=== PATIENT | female | born 1930 | race Caucasian/White ===

== ENCOUNTER → 2016-12-05 | Outpatient (CLI) | payer MEDICARE ==
[2016-01-12 10:23] VITALS: BP 132/72
[~2016-12-05] MED LIST: AMLO5TAB2 PO; ASPI81TA44 PO; CEPH-264 PO; LISI-338 PO; [UNRECOGNIZED DRUG - REMARK]; blood pressure pill
--- NOTE | 2016-12-05 09:23 | RAD ---
Indication chest congestion and cough. PA and lateral views of the chest were obtained and comparison is made to an examination 01/10/2016. Tortuous thoracic aorta is noted similar to the previous exam. The lungs are clear. There has not been a significant change in the appearance of the chest compared to the previous exam. IMPRESSION: No acute or focal process. No significant change
== END | disposition home or self-care (01) ==
LOC: DXRADRC 08:29
PROVIDERS: ATTEND Physician Assistant Medical
DX: R09.89 Other specified symptoms and signs involving the circulatory and respiratory systems (principal); R05 Cough
CPT/HCPCS: 71020

== ENCOUNTER 2017-03-07 13:39 | Emergency (ER) | payer MEDICARE ==
--- NOTE | 2017-03-07 14:14 | PHYS DOC ---
Past History Past Medical History: High Cholesterol, Hypertension Past Surgical History: Lumbar Laminectomy, Other Alcohol Use: None Drug Use: None Adult General Chief Complaint Chief Complaint: FOOT INJURY PAIN HPI HPI Patient is a 86 year old female who presents with complaint of right foot pain. Patient states that her symptoms started yesterday. Patient states that she is wearing a pair of sneakers which started rubbing on the medial aspect of her right heel. Patient states that she applied ice to the area during the night to try to help with her symptoms. Patient states that the heel became more red and swollen starting today. Patient denies any associated fever or nausea with her symptoms. Patient has had history of cellulitis requiring hospital admission in the past. The patient also is complaining of nonproductive cough. Patient has history of asthma. Patient states her symptoms have been worsening over the past 2 days. Patient has had associated shortness of breath but denies chest pain. The patient states that she has been using an old albuterol inhaler with mild relief in symptoms. Review of Systems Review of Systems Constitutional: Denies fever or chills [] Eyes: Denies change in visual acuity, redness, or eye pain [] HENT: Denies nasal congestion or sore throat [] Respiratory: Cough, shortness of breath [] Cardiovascular: Denies substernal chest pain or edema [] GI: Denies abdominal pain, nausea, vomiting, bloody stools or diarrhea [] : Denies dysuria or hematuria [] Musculoskeletal: Right heel pain and swelling [] Integument: Denies rash or skin lesions [] Neurologic: Denies headache, focal weakness or sensory changes [] Current Medications Current Medications Current Medications Medications (Trade) Dose Ordered Sig/David Start Time Stop Time Status Last Admin Dose Admin Albuterol/ Ipratropium (Duoneb) 3 ml 1X ONCE 03/07/17 14:30 03/07/17 14:31 DC 03/07/17 14:26 3 ML Allergies Allergies Allergies Coded Allergies Type Severity Reaction Last Updated Verified No Known Drug Allergies 01/10/16 No Physical Exam Physical Exam Constitutional: Alert, afebrile, no acute distress. [] HENT: Normocephalic, atraumatic, bilateral external ears normal, oropharynx moist, no oral exudates, nose normal. [] Eyes: PERRLA, EOMI, conjunctiva normal, no discharge. [] Neck: Normal range of motion, no tenderness, supple, no stridor. [] Cardiovascular:Heart rate regular rhythm, no murmur [] Lungs & Thorax: Moderately restricted air movement bilaterally, expiratory wheezing bilaterally, no rales [] Abdomen: Bowel sounds normal, soft, no tenderness, no masses, no pulsatile masses. [] Skin: Warm, dry, no erythema, no rash. [] Back: No tenderness, no CVA tenderness. [] Extremities: Mild soft tissue swelling along medial right heel with central ecchymotic lesion and surrounding erythema, warm to touch, mild tenderness to palpation present, no cyanosis, no clubbing, ROM intact, no edema. [] Neurologic: Alert and oriented X 3, normal motor function, normal sensory function, no focal deficits noted. [] Current Patient Data Vital Signs Vital Signs Date Time Temp Pulse Resp B/P (MAP) Pulse Ox O2 Delivery O2 Flow Rate FiO2 03/07/17 13:50 97.9 93 22 96 Room Air EKG EKG Not performed [] Radiology/Procedures Radiology/Procedures [address] [id number] IMAGING REPORT Signed PATIENT: NOHEMI ODELL ACCOUNT: [id number] : 1930 LOCATION: ER AGE: 86 SEX: F EXAM STATUS: REG ER ORD. PHYSICIAN: KALIN GATES MD REASON: cough, wheezing PROCEDURE: CHEST PA & LATERAL EXAM: CHEST 2 VIEWS History: Cough, wheezing for one week COMPARISON: 12/05/2016 TECHNIQUE: PA and lateral chest radiographs FINDINGS: The cardiomediastinal silhouette is within normal limits. The lungs are clear bilaterally. The costophrenic sulci are clear and well demarcated bilaterally. IMPRESSION: No radiographic evidence of an acute cardiopulmonary abnormality. DICTATED AND SIGNED BY: VAHE MADDEN MD DATE: 03/07/17 1449 CC: KALIN GATES MD; DAISY MUSA ~ [] Course & Med Decision Making Course & Med Decision Making Pertinent Labs and Imaging studies reviewed. (See chart for details) Patient was given DuoNeb breathing treatment in the emergency department with improvement in shortness of breath symptoms. The patient will be started on doxycycline for treatment of right foot cellulitis. Patient will also be started on prednisone for treatment of mild asthma exacerbation. Recommended follow-up in 2-3 days with patient's primary doctor for reevaluation. The patient did admit that she had a cold compress on longer than recommended. Potential frostbite is a consideration in this patient. Stressed the importance of following up in 2-3 days for reevaluation of the right foot. Advised return emergency department for any worsening symptoms. Patient was understanding and in agreement with treatment plan. Dragon Disclaimer Dragon Disclaimer This chart was dictated in whole or in part using Voice Recognition software in a busy, high-work load, and often noisy Emergency Department environment. It may contain unintended and wholly unrecognized errors or omissions. Departure Departure: Impression: Primary Impression: Cellulitis Additional Impression: Asthma exacerbation Disposition: 01 HOME, SELF-CARE Condition: IMPROVED Referrals: DAISY MUSA (PCP) Patient Instructions: Asthma, Adult, Cellulitis Additional Instructions: Follow-up with your primary doctor in 2-3 days. Return to the emergency department for any worsening symptoms. Scripts Prednisone (PREDNISONE) 10 Mg Tablet 10 MG PO UD for PREDNISONE TAPER, #39 TAB 0 Refills Take 3 tablets by mouth twice a day for 3 days, then take 2 tablets by mouth twice a day for 3 days, then take 1 tablet by mouth twice a day for 3 days, then take 1 tablet by mouth daily x 3 days, then stop. Prov: KALIN GATES MD 03/07/17 Doxycycline Hyclate (DOXYCYCLINE HYCLATE) 100 Mg Capsule 1 CAP PO BID, #20 CAP Prov: KALIN GATES MD 03/07/17 Problem Qualifiers Primary Impression: Cellulitis Site of cellulitis: extremity Site of cellulitis of extremity: lower extremity Laterality: right Qualified Codes: L03.115 - Cellulitis of right lower limb KALIN GATES MD Mar 07, 2017 14:14
[2017-03-07] MEDS ORDERED: IPRATRPIUM/ALBUTEROL 0.5/2.5MG 3 ML NEBU. NEB ONE (14:30)
--- NOTE | 2017-03-07 14:52 | RAD ---
EXAM: CHEST 2 VIEWS History: Cough, wheezing for one week COMPARISON: 12/05/2016 TECHNIQUE: PA and lateral chest radiographs FINDINGS: The cardiomediastinal silhouette is within normal limits. The lungs are clear bilaterally. The costophrenic sulci are clear and well demarcated bilaterally. IMPRESSION: No radiographic evidence of an acute cardiopulmonary abnormality.
[2017-03-07] MEDS ORDERED: DOXY100C2 PO (15:04)
[2017-03-07] MEDS ORDERED: PRED-220 PO (15:04)
[2017-03-07] MEDS ORDERED: ALBU8.5H8 INH (15:11)
[2017-03-07 15:19] VITALS: BP 139/110
== END 2017-03-07 15:20 | disposition home or self-care (01) ==
LOC: ER 13:39
DX: L03.115 Cellulitis of right lower limb (principal); J45.901 Unspecified asthma with (acute) exacerbation; E78.00 Pure hypercholesterolemia, unspecified; I10 Essential (primary) hypertension
CPT/HCPCS: 71020; 94640; 99284; J7620

== ENCOUNTER → 2017-04-21 | Outpatient (CLI) | payer MEDICARE ==
[~2017-04-21] MED LIST changes: +ALBU8.5H8 INH; +DOXY100C2 PO; +PRED-220 PO
--- NOTE | 2017-04-21 11:58 | RAD ---
DATE: 04/21/2017 EXAM: MAMMO SIMA SCREENING BILATERAL HISTORY: Routine screening COMPARISON: 03/30/2016 This study was interpreted with the benefit of Computerized Aided Detection (CAD). The breast parenchyma is primarily fatty replaced. Breast parenchyma level density A. FINDINGS: 2-D and 3-D tomosynthesis imaging was performed in CC and MLO projections. No new or enlarging breast densities are seen. Minimal benign type calcification is present. No suspicious microcalcifications have developed. IMPRESSION: Stable mammograms without evidence of malignancy. BI-RADS CATEGORY: 2 BENIGN FINDING(S) RECOMMENDED FOLLOW-UP: 12M 12 MONTH FOLLOW-UP PQRS compliance statement: Patient information was entered into a reminder system with a target due date for the next mammogram. Mammography is a sensitive method for finding small breast cancers, but it does not detect them all and is not a substitute for careful clinical examination. A negative mammogram does not negate a clinically suspicious finding and should not result in delay in biopsying a clinically suspicious abnormality. "Our facility is accredited by the [employer] Mammography Program."
== END | disposition home or self-care (01) ==
LOC: MAMMO 08:43
PROVIDERS: ATTEND Physician Assistant Medical
DX: Z12.31 Encounter for screening mammogram for malignant neoplasm of breast (principal)
CPT/HCPCS: 77063; G0202; 77067

== ENCOUNTER → 2017-11-22 | Outpatient (CLI) | payer MEDICARE ==
--- NOTE | 2017-11-22 08:52 | RAD ---
Chest radiograph 11/22/2017 2:00 AM Indication: Cough, wheezing Comparison: Chest radiograph 03/07/2017 Technique: PA and lateral views of the chest are provided. Findings: Cardiomediastinal silhouette is within normal limits. Thoracic aorta is tortuous. No pleural effusions, pulmonary vascular congestion or pneumothorax. The lungs are clear. There is reverse S-shaped curvature of the thoracic lumbar spine. Impression: No acute cardiopulmonary process.
== END | disposition home or self-care (01) ==
LOC: PMG 08:31
PROVIDERS: ATTEND Physician Assistant Medical
DX: R05 Cough (principal); I10 Essential (primary) hypertension; E78.5 Hyperlipidemia, unspecified
CPT/HCPCS: 71046

== ENCOUNTER 2018-02-12 22:35 | Inpatient (IN) | payer MEDICARE ==
[~2018-02-12] VITALS: Ht 162.6 cm; Wt 84.5 kg
[~2018-02-12 22:35] MED LIST changes: -ASPI81TA44 PO; +ASPI81TA59 PO
--- NOTE | 2018-02-12 22:51 | ED.ADGEN ---
Past History Past Medical History: High Cholesterol, Hypertension Past Surgical History: Lumbar Laminectomy, Other Alcohol Use: None Drug Use: None Adult General Chief Complaint Chief Complaint " I was watching a movie at 1000 pm .. and dropped peanut lid.. and could not pick it up... with my right hand.. it was all numb.. it just would not work... but it is better now..." HPI HPI Patient is a 87 year old female who presents with above hx and complaints of Rt. hand weakness and numbness. Pt. unable to use her had for 30 minutes, but just before arrival function return to right hand. Pt. states she was also feeling " jeremiah druged". Pt denies prior hx of CVA, TIA. Pt. has hx of HTN and elevated Cholesterol. Pt. follows with [facility]. Pt. denies any fever, chills, travel or ill contacts. Pt. compliant with meds. Pt. Rt. hand dominate. 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 GCS 15. Review of Systems Review of Systems Constitutional: Denies fever or chills [] Eyes: Denies change in visual acuity, redness, or eye pain [] HENT: Denies nasal congestion or sore throat [] Respiratory: Denies cough or shortness of breath [] Cardiovascular: No additional information not addressed in HPI [] GI: Denies abdominal pain, nausea, vomiting, bloody stools or diarrhea [] : Denies dysuria or hematuria [] Musculoskeletal: Denies back pain or joint pain [] Integument: Denies rash or skin lesions [] Neurologic: Denies headache, Hxl of Rt, hand focal weakness /sensory changes [] Endocrine: Denies polyuria or polydipsia [] All other systems were reviewed and found to be within normal limits, except as documented in this note. Family History Family History Non-contributory Current Medications Current Medications Current Medications Medications (Trade) Dose Ordered Sig/David Start Time Stop Time Status Last Admin Dose Admin Aspirin (Duane Aspirin) 325 mg 1X ONCE 02/12/18 23:30 02/12/18 23:31 DC See Nursing for home, meds. Allergies Allergies Allergies Coded Allergies Type Severity Reaction Last Updated Verified No Known Drug Allergies 01/10/16 No Physical Exam Physical Exam Constitutional: , no acute distress, non-toxic appearance. [] HENT: Normocephalic, atraumatic, bilateral external ears normal, oropharynx moist, no oral exudates, nose normal. [] Eyes: PERRLA, EOMI, conjunctiva normal, no discharge. [] Neck: Normal range of motion, no tenderness, supple, no stridor. [] Cardiovascular:Heart rate regular rhythm, no murmur [] Lungs & Thorax: Bilateral breath sounds equal at apex on auscultation [] Abdomen: Bowel sounds normal, soft, no tenderness, no masses, no pulsatile masses. [] Scar. Skin: Warm, dry, no erythema, no rash. Poor turgor. Back: No tenderness, no CVA tenderness. [] Old lumbar surgery scar. Extremities: No tenderness, no cyanosis, no clubbing, ROM intact, no edema. [] Arthritic changes.. Neurologic: Alert and oriented X 3,no gross motor and sensory function deficits , no focal deficits noted. []DTR+ 2 brachial and patella. No drift. Pt. ambulatory without problems. Psychologic: Affect normal, judgement normal, mood normal. [] Current Patient Data Vital Signs Vital Signs Date Time Temp Pulse Resp B/P (MAP) Pulse Ox O2 Delivery O2 Flow Rate FiO2 02/12/18 22:41 97.6 83 20 96 Room Air Lab Results Laboratory Tests Test 02/12/18 23:09 02/13/18 00:15 White Blood Count 6.8 x10^3/uL (4.0-11.0) Red Blood Count 4.48 x10^6/uL (3.50-5.40) Hemoglobin 13.9 g/dL (12.0-15.5) Hematocrit 41.7 % (36.0-47.0) Mean Corpuscular Volume 93 fL (79-100) Mean Corpuscular Hemoglobin 31 pg (25-35) Mean Corpuscular Hemoglobin Concent 33 g/dL (31-37) Red Cell Distribution Width 13.6 % (11.5-14.5) Platelet Count 208 x10^3/uL (140-400) Neutrophils (%) (Auto) 43 % (31-73) Lymphocytes (%) (Auto) 41 % (24-48) Monocytes (%) (Auto) 13 % (0-9) H Eosinophils (%) (Auto) 3 % (0-3) Basophils (%) (Auto) 1 % (0-3) Neutrophils # (Auto) 2.9 x10^3uL (1.8-7.7) Lymphocytes # (Auto) 2.8 x10^3/uL (1.0-4.8) Monocytes # (Auto) 0.9 x10^3/uL (0.0-1.1) Eosinophils # (Auto) 0.2 x10^3/uL (0.0-0.7) Basophils # (Auto) 0.1 x10^3/uL (0.0-0.2) Erythrocyte Sedimentation Rate 6 (0-25) Prothrombin Time 11.0 SEC (9.4-11.4) Prothrombin Time INR 1.1 (0.9-1.1) PTT 27 SEC (23-33) Sodium Level 143 mmol/L (136-145) Potassium Level 3.9 mmol/L (3.5-5.1) Chloride Level 107 mmol/L (98-107) Carbon Dioxide Level 26 mmol/L (21-32) Anion Gap 10 (6-14) Blood Urea Nitrogen 24 mg/dL (7-20) H Creatinine 1.1 mg/dL (0.6-1.0) H Estimated GFR (Cockcroft-Gault) 47.2 Glucose Level 98 mg/dL (70-99) Calcium Level 9.2 mg/dL (8.5-10.1) Magnesium Level 2.3 mg/dL (1.8-2.4) Ammonia < 10 mcmol/L (11-34) L Creatine Kinase 143 U/L (26-192) Creatine Kinase MB (Mass) 1.8 ng/mL (0.0-3.6) Creatine Kinase MB Relative Index 1.3 % (0-4) Troponin I Quantitative < 0.017 ng/mL (0-0.055) PH-Roc-G-Type Natriuretic Peptide 229 pg/mL (0-449) Urine Collection Type Unknown Urine Color Yellow Urine Clarity Clear Urine pH 7.0 Urine Specific [place] 1.015 Urine Protein Neg (NEG-TRACE) Urine Glucose (UA) Neg mg/dL (NEG) Urine Ketones (Stick) Neg mg/dL (NEG) Urine Blood Mod (NEG) Urine Nitrite Neg (NEG) Urine Bilirubin Neg (NEG) Urine Urobilinogen Dipstick 0.2 mg/dL (0.2 mg/dL) Urine Leukocyte Esterase Neg (NEG) Urine RBC 1-2 /HPF (0-2) Urine WBC 0 /HPF (0-4) Urine Squamous Epithelial Cells Occ /LPF Urine Bacteria 0 /HPF (0-FEW) Urine Opiates Screen Neg (NEG) Urine Methadone Screen Neg (NEG) Urine Barbiturates Neg (NEG) Urine Phencyclidine Screen Neg (NEG) Urine Amphetamine/Methamphetamine Neg (NEG) Urine Benzodiazepines Screen Neg (NEG) Urine Cocaine Screen Neg (NEG) Urine Cannabinoids Screen Neg (NEG) Urine Ethyl Alcohol Neg (NEG) EKG EKG My interpretation of EKG show a sinus 80, occ. PAC, Lt axis, no findings of acute STEMI with contralateral changes. [] Radiology/Procedures Radiology/Procedures My interpretation of CXR shows No acute cardiopul. changes. DJD, Borderline cardiac. My interpretation of CT head shows no shift, mass, edema, bleed, or fracture. Does have findings of white matter disease changes. Formal report when available [] Course & Med Decision Making Course & Med Decision Making Pertinent Labs and Imaging studies reviewed. (See chart for details). Discussed presentation, testing and treatment plan with - will admit for further eval and tx. [] Final Impression Final Impression 1. TIA vs CVA[] 2. HTN 3. Elevated BUN /Creat. Dragon Disclaimer Dragon Disclaimer This electronic medical record was generated, in whole or in part, using a voice recognition dictation system. FATIMAH TOLEDO MD February 12, 2018 22:51
--- NOTE | 2018-02-12 23:17 | EKG ---
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
--- NOTE | 2018-02-12 23:28 | RAD ---
RS Compliance Statement: One or more of the following individualized dose reduction techniques were utilized for this examination: 1. Automated exposure control 2. Adjustment of the mA and/or kV according to patient size 3. Use of iterative reconstruction technique CT HEAD WITHOUT CONTRAST History: [id number] Headache, dizziness tonight Comparison: None. Technique: Axial images are obtained of the head from the skull base through the vertex without IV contrast. Findings: No mass-effect, midline shift, extra-axial fluid collection, hemorrhage, or obvious acute infarction is identified. Basilar cisterns are patent. The ventricles and sulci are prominent, consistent with age-related cerebral atrophy. There is periventricular white matter hypoattenuation. This is a nonspecific finding but is commonly due to chronic small vessel ischemic disease. Bone windows demonstrate no acute calvarial abnormality. The visualized paranasal sinuses are clear. Mastoid air cells are well aerated. IMPRESSION: 1. No acute intracranial abnormality. 2. Age-related cerebral atrophy and periventricular white matter changes of chronic small vessel ischemic disease. Electronically signed by: Juan Antonio Buitrago MD (02/12/2018 11:25 PM) [facility]
[2018-02-12 23:30] LABS: BASO # 0.1 x10^3/uL (0.0-0.2); BASO % 1 % (0-3); EOS # 0.2 x10^3/uL (0.0-0.7); EOS % 3 % (0-3); HEMATOCRIT 41.7 % (36.0-47.0); HEMOGLOBIN 13.9 g/dL (12.0-15.5); LYMPH # 2.8 x10^3/uL (1.0-4.8); LYMPH % 41 % (24-48); MEAN CORPUSCULAR HEMOGLOBIN 31 pg (25-35); MEAN CORPUSCULAR HGB CONC 33 g/dL (31-37); MEAN CORPUSCULAR VOLUME 93 fL (79-100); MONO # 0.9 x10^3/uL (0.0-1.1); MONO % 13 % (0-9); NEUT # 2.9 x10^3uL (1.8-7.7); NEUT % 43 % (31-73); PLATELET COUNT 208 x10^3/uL (140-400); RED BLOOD COUNT 4.48 x10^6/uL (3.50-5.40); RED CELL DISTRIBUTION WIDTH 13.6 % (11.5-14.5); WHITE BLOOD COUNT 6.8 x10^3/uL (4.0-11.0)
[2018-02-12] MEDS ORDERED: ASPIRIN 325 MG TABLET PO ONE (23:30)
[2018-02-12 23:52] LABS: CALCIUM 9.2 mg/dL (8.5-10.1); CREATININE 1.1 mg/dL (0.6-1.0); GFR 47.2; MAGNESIUM 2.3 mg/dL (1.8-2.4); POTASSIUM 3.9 mmol/L (3.5-5.1)
[2018-02-13 01:08] LABS: BACTERIA,URINE 0 /HPF (0-FEW); BARBITURATES NEG (NEG); BENZODIAZEPINES NEG (NEG); BILIRUBIN,URINE NEG (NEG); CANNABINOIDS NEG (NEG); CLARITY,URINE CLEAR; COCAINE NEG (NEG); COLOR,URINE YELLOW; GLUCOSE,URINE NEG (NEG); METHADONE NEG (NEG); NITRITE,URINE NEG (NEG); OPIATES NEG (NEG); PHENCYCLIDINE NEG (NEG); SQUAMOUS EPITHELIAL CELL,UR OCC /LPF; UROBILINOGEN,URINE 0.2 mg/dL (0.2 mg/dL); WBC,URINE 0 /HPF (0-4)
[2018-02-13 01:09] LABS: AMPHETAMINE/METHAMPHETAMINE NEG (NEG)
[2018-02-13 03:30] VITALS: BP 148/81
[2018-02-13] MEDS ORDERED: cloNIDine HCL 0.1 MG TABLET PO ONE (03:30)
[2018-02-13] MEDS ORDERED: LISI-338 PO (05:30)
[2018-02-13] MEDS ORDERED: PITA2TAB2 PO (05:30)
[2018-02-13 05:40] VITALS: BP 125/78
[2018-02-13] MEDS ORDERED: ALBU8.5H8 INH (07:54)
[2018-02-13] MEDS: ASPIRIN 81 MG TAB.CHEW PO SCH (09:12)
--- NOTE | 2018-02-13 09:18 | RAD ---
Portable chest, 02/12/2018: HISTORY: Dizziness, headache Comparison is made to a study from 11/22/2017. The heart size is within normal limits. There is moderate ectasia of the thoracic aorta. The pulmonary vascularity is within normal limits. No pulmonary consolidation is seen. There is no evidence of pleural fluid. IMPRESSION: 1. Aortic ectasia. 2. No acute cardiopulmonary abnormality is detected. Electronically signed by: Bin Sharp MD (02/13/2018 9:14 AM) [facility]
[2018-02-13] MEDS ORDERED: IOHEXOL 300 MG/ML 75 ML VIAL. IV ONE (09:30)
--- NOTE | 2018-02-13 10:59 | RAD ---
CTA head and neck History: Right arm numbness starting 24 hours ago, TIA Technique: After bolus of intravenous contrast, volumetric CT data acquisition was acquired of the head and neck. Multiplanar reconstruction images to include MIP and 3-D reconstruction images are submitted. Exposure: One or more of the following individualized dose reduction techniques were utilized for this examination: 1. Automated exposure control 2. Adjustment of the mA and/or kV according to patient size 3. Use of iterative reconstruction technique. Contrast: 60 cc Omnipaque 300 Comparison: Noncontrast head CT the same day, no previous similar exam available Any determination of stenosis is based on NASCET criteria. CTA head: Findings: Right vertebral artery constitute the basilar artery. Left vertebral artery terminates in PICA. There is visualization of PICAs, superior cerebellar arteries, questionably visualized AICAs. There is fairly prominent right posterior communicating artery, probably aplastic right P1 segment. No significant left posterior communicating artery is visualized. There is visualization of bilateral internal carotid arteries at the skull base. There is some atherosclerotic calcification carotid siphons bilaterally, no significant stenosis. Anterior communicating artery is not confidently identified. There is visualization segments of the anterior, middle, posterior cerebral arteries bilaterally, no focal vessel occlusion or defined filling defect identified. No aneurysm is identified. There is visualization segments of the major venous sinuses. Impression: 1. No focal vessel occlusion or defined intraluminal filling defect is identified of the intracranial vasculature. Right vertebral artery supplies the basilar artery. Left vertebral artery terminates in PICA. There is likely right posterior cerebral artery. Neck CTA: Findings: There is suboptimal contrast opacification of the aortic arch and the proximal great vessels for this exam. There is calcified plaque of the proximal left internal carotid artery without significant stenosis. Proximal right common carotid artery is tortuous, narrowing at the site of maximal tortuosity although overall patent without significant stenosis. Right cervical internal carotid artery is patent without significant stenosis. No convincing dissection flap is identified of the cervical arterial vasculature allowing for limitations of visualization of the proximal great vessels. Left vertebral artery is diffusely hypoplastic comparing with the right. Proximal right vertebral artery is tortuous. Proximal left vertebral artery is poorly visualized, very small in caliber. There is no significant abnormality of the limited visualized lung apices. There is multilevel cervical degenerative disc disease and spondylosis. There is multilevel spinal stenosis greatest at C6-7, central canal stenosis with level about 6 to 7 mm to lesser degree at C5-C6 and C4-5. There is multilevel facet and uncovertebral degenerative change contributing to multilevel cervical neural foramina compromise, more significant narrowing on the left at C3-4 and C4-5 and on the right at C5-C6 and C6-7. Impression: 1. Proximal great vessels and aortic arch are poorly evaluated on this exam due to degree of contrast opacification. Otherwise no significant stenosis or dissection flap is identified of the cervical arterial vasculature. Left vertebral artery is diffusely hypoplastic, proximally poorly visualized. 2. There is multilevel cervical degenerative disc disease and spondylosis, also multilevel spinal stenosis. There is multilevel facet and uncovertebral degenerative change contributing to neural foramina compromise. Electronically signed by: Jossue Cohn MD (02/13/2018 10:56 AM) [id number]
[2018-02-13 11:25] VITALS: BP 138/80
--- NOTE | 2018-02-13 15:22 | RAD ---
Carotid ultrasound, 02/13/2018: HISTORY: Right arm weakness/numbness, TIA Duplex evaluation of the carotid arteries and neck was performed including grayscale, color-flow and spectral Doppler analysis. There is mild intimal thickening and smooth plaquing at the carotid bifurcations, more so on the left. The peak systolic velocity in the right internal carotid artery is 69 cm/s with an end-diastolic velocity of 24 cm/s. On the left, the peak systolic velocity in the internal carotid artery is 78 cm/s with an end-diastolic velocity of 32 cm/s. These Doppler findings suggest narrowing in the 0-50 percent diameter range. Antegrade flow is present in both vertebral arteries in the neck. IMPRESSION: Mild atherosclerotic plaquing at both carotid bifurcations with underlying luminal narrowing in the 0-50 percent diameter range bilaterally. Note: Stenosis calculations for CT, MRA and conventional angiography are based upon determination of the distal ICA diameter in accordance with the NASCET methodology. Stenosis calculations for Doppler studies are derived from validated velocity criteria which are known to correlate with NASCET methodology of determining stenosis. Electronically signed by: Bin Sharp MD (02/13/2018 3:19 PM) [facility]
[2018-02-13 16:25] VITALS: BP 129/79
[2018-02-13] MEDS ORDERED: MAGN400C PO (17:46)
[2018-02-13] MEDS ORDERED: CALCIUM PO (17:46)
[2018-02-13] MEDS ORDERED: VIT1CAPS12 PO (17:46)
[2018-02-13 19:19] VITALS: BP 126/77
--- NOTE | 2018-02-13 20:31 | HP ---
ADMIT DATE: 02/13/2018 HISTORY OF PRESENT ILLNESS: The patient is an 87-year-old female patient, who came to the Emergency Room stating that she was watching movie at around 10 p.m. and dropped and could not pick it up with her right hand. It was all numb, just would not work; however, by the time she arrived to the Emergency Room, all her symptoms have completely resolved. She has no more weakness or numbness. She apparently was unable to use her hand for almost 30 minutes, but before arrival, function returned to her right hand. She also stated that she is feeling kind of drugged; however, she denied any history of CVA or TIA before. She is known to have hypertension, hypercholesterolemia, and has been following with her primary care physician. She stated that she has been compliant with all her medication. She was investigated. She was seen in the Emergency Room and has had lab work as well as CT scan of the head and chest and now was admitted for further evaluation and to consult Dr. Abarca and check her fasting lipid profile. PAST MEDICAL HISTORY: Significant for asthmatic bronchitis, hypertension, hyperlipidemia, osteoarthritis, and senile macular degeneration. PAST SURGICAL HISTORY: Significant for bilateral breast reduction surgery, back surgery in 2016, bilateral cataract extraction. ALLERGIES: She has no known drug allergies. MEDICATIONS: She is currently on following medications: Albuterol sulfate 2 puffs every 6 hours, Livalo 2 mg tablet once a day, amlodipine besylate 5 mg daily, lisinopril 5 mg daily. FAMILY HISTORY: She has one brother at age of 9 because of pneumonia and another brother in his 80s, three sisters and one still alive at the age of 95, and lives in [place]. Her father at age of 47, because some form of bleeding. Mother in her 60s because of severe asthma exacerbation. SOCIAL HISTORY: She is , has 3 daughters and 2 sons. One son because of cancer. She has never smoked, the last time she drank alcohol was more than 30 years ago. REVIEW OF SYSTEMS: The patient denied any blurring of vision, cataract, glaucoma, she does have macular degeneration. Denied any earache, tinnitus or sensorineural deafness. Denied any nosebleeds, stuffy nose or postnasal drip. Denied any sore throat, sore tongue, toothache, hoarseness of voice or difficulty swallowing. Denied any nausea, vomiting, diarrhea or constipation. Denied any hematemesis, melena or hematochezia. Denied any dysuria, frequency or hematuria. Denied any chest pain, shortness of breath, orthopnea, paroxysmal nocturnal dyspnea. Denied any cough, phlegm, or hemoptysis. PHYSICAL EXAMINATION: GENERAL: On arrival to the Emergency Room, she looked well and was clearly in no apparent respiratory distress. No pallor, jaundice, cyanosis, or thyromegaly. No jugular venous distension. No limb edema. VITAL SIGNS: Her heart rate was 83. Her blood pressure 162/93, temperature was 97.6, respiratory rate 20, and oxygen saturation was 96%. HEAD, EYES, EAR, NOSE AND THROAT: Showed normocephalic, atraumatic. NECK: Supple. HEART: Showed normal first and second sounds. No gallop, rub or murmur. CHEST: Clear to auscultation. No crepitation or rhonchi. ABDOMEN: Distended, soft, and nontender. NEUROLOGIC: She was awake, alert, responding appropriately. Her cranial nerves intact. All her weakness in her right upper extremity has completely subsided and the functionality retained. She has no more numbness. She was able to use her hand without any problem. She is able to ambulate without assistance or assistive devices. LABORATORY DATA: Showed a white cell count of 6800, hemoglobin 13.9, hematocrit 42, MCV 93, and platelet count 208,000. Her chemistry showed a serum sodium 143, potassium 3.9, chloride 107, bicarbonate 26, anion gap of 10, BUN 24, creatinine 1.1, estimated GFR was 47 mL per minute. Her glucose was 98, calcium was 9.2, magnesium 2.3. Her ammonia was only less than 10. Her serum triglycerides were 81. Her prothrombin time and INR are normal. PTT was 27. Urinalysis is unremarkable and toxic screen was negative. Her CT scan of the head showed no acute intracranial abnormality. She has age-related cerebral atrophy and periventricular white matter changes of chronic small vessel ischemic disease. We will obviously check her fasting lipid profile, consult Dr. Abarca and decide on further management accordingly. LENI PASCUAL MD DR: SHY/dennis JOB#: [id number] / [id number]
[2018-02-13 23:42] VITALS: BP 110/68
--- NOTE | 2018-02-14 00:51 | CONS ---
DATE OF CONSULTATION: 02/13/2018 NEUROLOGIC CONSULTATION REFERRING PHYSICIAN: Gala Srivastava MD REASON FOR CONSULTATION: TIA versus stroke. HISTORY OF PRESENT ILLNESS: This is an 87-year-old right-handed female who was admitted through Emergency Room on account of a sudden onset of right hand weakness. According to the patient, she was watching TV last night with her kids. She tried to put a cap on a jar. She was having difficulty and discoordinated of the right hand. She was rushed to the Emergency Room at [facility] and within 20 minutes her symptoms of right-handed weakness was roughly resolved. She denies headaches, visual disturbances, nausea, vomiting, slurred speech, chest pain, shortness of breath or palpitation, dysarthria or dysphagia. On arrival to the Emergency Room, she was given aspirin 325 mg. Initial nonenhanced head CT scan revealed no acute intracranial process, but age-related cerebral atrophy and chronic small vessel ischemic changes. Currently, the patient denies any new neurological or medical complaints. PAST MEDICAL HISTORY: Significant for chronic lower back pain, radiculopathy, spinal stenosis, hypertension, asthma, and hyperlipidemia, PAST SURGICAL HISTORY: Significant for L4-L5 laminectomy and removal of a sphenoidal cyst in 10/2015, varicose vein stripping to both the lower extremities, bilateral breast reduction. SOCIAL HISTORY: The patient lives independently. She denies smoking, alcohol drinking, or illicit drug use. CURRENT HOME MEDICATIONS: Albuterol inhaler, amlodipine 5 mg daily, lisinopril 5 mg daily, pitavastatin 2 mg daily. ALLERGIES: No known drug allergies. REVIEW OF SYSTEMS: A 10-point review of system was performed as mentioned above in history of present illness, otherwise unremarkable. PHYSICAL EXAMINATION: GENERAL: Well-developed, well-nourished female, not in acute distress. She weighs 190 pounds. VITAL SIGNS: Blood pressure 125/78, respiratory rate 18, pulse is 73, temperature 97.6, oxygen saturation 97% on room air. HEENT: Normocephalic, atraumatic, otherwise unremarkable. NECK: Supple. Negative for carotid bruit, lymphadenopathy, or thyromegaly. LUNGS: Clear to A and P. CARDIOVASCULAR: Regular rate and rhythm. Normal S1, S2. There is no S3, S4, or murmur. ABDOMEN: Soft. Bowel sounds positive. EXTREMITIES: Negative for cyanosis, clubbing, or pitting edema. NEUROLOGICAL: Mental Status: The patient is alert and oriented x 3. Speech is fluent. There is no language dysfunction. Memory, judgment, and abstract thinking are normal. The patient denies hallucination or delusion. Cranial nerves: Visual elizabeth are full. The pupils are reactive to light and accommodation. The extraocular movements are intact. There is no nystagmus. There is no facial motor or sensory deficit. Hearing is intact bilaterally. The palate is elevated symmetrically. Sternocleidomastoid muscles are powerful bilaterally. The patient shrugs her shoulders symmetrically, protrudes her tongue in the midline without fasciculation or atrophy. Motor examination revealed no focal muscle bulk was seen. The tone is normal. The strength is 5/5 throughout. Sensory examination revealed normal pinprick, light touch, vibratory and position senses. Deep tendon reflexes were symmetric and hypoactive with absent Achilles responses. Gait and coordination are normal. LABORATORY DATA: CBC revealed white blood cells of 6800, hemoglobin 13.9, hematocrit 41.7, platelet count . Chemistry revealed sodium of 143, potassium 3.9, chloride 107, CO2 26, BUN 24, creatinine 1.1, glucose is 98, calcium 9.2. Troponin level is normal. Cardiac enzymes are normal. Urinalysis is negative for urinary tract infections. Urine drug screen is negative. IMPRESSION: 1. Possible transient ischemic attack. 2. Hypertension and hyperlipidemia. 3. Chronic lower back pain, required laminectomy. RECOMMENDATIONS: 1. CT angio of the neck and head. 2. Continue with aspirin. 3. Continue with current management initiated by Dr. Srivastava. M Tanya VILCHIS MD DR: HERNANDEZ/dennis JOB#: [id number] / [id number]
[2018-02-14 05:58] VITALS: BP 139/87
[2018-02-14 06:33] LABS: CALCIUM 8.4 mg/dL (8.5-10.1); GFR 52.7; POTASSIUM 3.8 mmol/L (3.5-5.1)
[2018-02-14 06:43] LABS: BASO % 1 % (0-3); EOS # 0.2 x10^3/uL (0.0-0.7); EOS % 4 % (0-3); HEMATOCRIT 41.7 % (36.0-47.0); LYMPH # 2.2 x10^3/uL (1.0-4.8); LYMPH % 37 % (24-48); MEAN CORPUSCULAR HEMOGLOBIN 31 pg (25-35); MEAN CORPUSCULAR HGB CONC 34 g/dL (31-37); MEAN CORPUSCULAR VOLUME 93 fL (79-100); MONO # 0.6 x10^3/uL (0.0-1.1); MONO % 11 % (0-9); NEUT # 2.8 x10^3uL (1.8-7.7); NEUT % 48 % (31-73); PLATELET COUNT 204 x10^3/uL (140-400); RED BLOOD COUNT 4.47 x10^6/uL (3.50-5.40); RED CELL DISTRIBUTION WIDTH 13.6 % (11.5-14.5); WHITE BLOOD COUNT 5.9 x10^3/uL (4.0-11.0)
[2018-02-14] MEDS: ASPIRIN 81 MG TAB.CHEW PO SCH (08:21)
--- NOTE | 2018-02-14 22:04 | DS ---
DATE OF DISCHARGE: 02/14/2018 HISTORY OF PRESENT ILLNESS: The patient is an 87-year-old right-handed female patient, who was admitted to the Emergency Room on account of a sudden onset of right hand weakness. According to the patient, she was watching TV the night before with her kids. She tried to put the cup in the jar and she was having difficulty and discoordination in her right hand. She was rushed to the Emergency Room at [facility] and within 30 minutes, her symptoms of right-handed weakness has roughly resolved. She denied any headache, visual disturbances, nausea, vomiting, slurred speech, chest pain, shortness of breath, palpitation, dysarthria or dysphagia. On arrival to the Emergency Room, she was given aspirin 325 mg and initial nonenhanced CT scan revealed no acute intracranial process, but age-related cerebral atrophy and chronic small vessel ischemic disease. She was admitted and we did consult Dr. Abarca who recommended doing head and neck CT angio as well as bilateral carotid Doppler ultrasound. The carotid Doppler ultrasound showed there is mild intimal thickening and smooth plaquing at the carotid bifurcation, more so on the left. The peak systolic velocity in the right internal carotid artery was 69 cm/second with an end-diastolic velocity of 24 cm, the second in the left side. The peak systolic velocity in the internal carotid artery was 78 cm/sec with an end-diastolic velocity of 32 cm/sec. These Doppler findings shows narrowing in the 0-50% diameter range. Antegrade flow is present in both vertebral arteries in the neck and the impression is that the patient has mild atherosclerotic plaquing at both carotid bifurcation with underlying luminal narrowing in the 0-50% diameter range bilaterally. The CT angio of the head showed no focal vessel occlusion or defined intraluminal filling defect is identified with intracranial vasculature. The right vertebral artery supplies the basilar artery. The left vertebral artery terminates in the posterior inferior cerebellar artery. This is likely right posterior cerebral artery. There is no significant abnormality of the limited visualized lung apices. There is multilevel cervical degenerative disk disease and spondylosis. There is multilevel spinal stenosis greater at C6-C7, central canal stenosis with level about 6-7 cm to a lesser degree at C5-C6, C4-C5. There is multilevel facet and uncovertebral degenerative changes contributing to multilevel cervical neural foramina compromise more significant narrowing on the left at C3-C4, C4-C5 and on the right at C5-C6 and C6-C7. The patient remained well. She has had no further episode of right-sided weakness or any other neurological deficit. She has been up and about and then remained hemodynamically stable. She was evaluated by the physical therapy and has been up and about without any assistance or assistive devices and the decision was made to discharge her home to follow with her primary care physician. PHYSICAL EXAMINATION: GENERAL: On examining her today before discharge, she looked well and was clearly in no apparent respiratory distress, pale, but no jaundice or cyanosis. No lymphadenopathy, no thyromegaly. No jugular venous distension. No limb edema. VITAL SIGNS: Her heart rate was 67, blood pressure was 139/87, temperature was 98.1, respiratory rate was 14 and oxygen saturation was 96%. HEAD, EYES, EARS, NOSE AND THROAT: Showed normocephalic, atraumatic. NECK: Supple. HEART: Showed normal first and second heart sounds with no gallop, rub or murmur. CHEST: Clear to auscultation. No crepitation or rhonchi. ABDOMEN: Distended, soft, nontender. No guarding or rigidity. No organomegaly. Hernial orifice intact. Bowel sounds normal. NEUROLOGIC: She is awake, alert, responding appropriately. All cranial nerves intact. She moves extremities without difficulty. She ambulates without assistance or assistive devices. LABORATORY DATA: Her lab work this morning showed a white cell count 5900, hemoglobin 14, hematocrit 42, MCV 93 and platelet count of 204,000. Her serum sodium was 143, potassium 3.8, chloride 107, bicarbonate 29, anion gap of 7, BUN 21, creatinine 1. Estimated GFR was 53 mL per minute. Her glucose was 92. Calcium was 8.4. Her serum triglycerides were 81. Total cholesterol 164, LDL was 90, VLDL was 16, HDL cholesterol was 58 and the ratio was 2. Her prothrombin time, INR and aPTT were all within normal range. DISCHARGE MEDICATIONS: The patient was discharged home to continue on her albuterol sulfate 2 puffs every 6 hours, calcium carbonate 1200 mg daily, lisinopril 5 mg once a day, magnesium oxide 400 mg once a day, pitavastatin for Livalo 2 mg tablet once a day, multivitamin 1 tablet once a day. FINAL DISCHARGE DIAGNOSES: 1. Transient ischemic attack. 2. Hypertension. 3. Hyperlipidemia. 4. Chronic low back pain requiring laminectomy. LENI PASCUAL MD DR: SHY/dennis JOB#: [id number] / [id number]
--- NOTE | 2018-02-14 22:24 | PN ---
DATE: SUBJECTIVE: The patient denies any new medical or neurological complaints. OBJECTIVE: GENERAL: Well-developed, well-nourished female in no acute distress. VITAL SIGNS: Blood pressure 159/87, respiratory rate 14, pulse is 67 and regular, temperature 98.1, oxygen saturation 90% on room air. HEENT: Normocephalic, atraumatic, otherwise unremarkable. NECK: Supple. Negative for carotid bruit, lymphadenopathy or thyromegaly. LUNGS: Clear to A and P. CARDIOVASCULAR: Regular rate and rhythm, normal S1, S2. There is no S3, S4, or murmur. ABDOMEN: Soft. Bowel sounds positive. EXTREMITIES: Negative for cyanosis, clubbing, edema. NEUROLOGIC: Normal mental status and intact tenderness. LABORATORY DATA: There is no focal motor or sensory deficit. Deep tendon reflexes are symmetric and hypoactive with ____ responses. Gait and coordination are normal. Diagnosing CT angio of the head and neck revealed no evidence of significant avascular occlusion, all focal aneurysms. CT angio of the neck also revealed evidence of cervical spine stenosis and multiple levels of degenerative disk disease. CBC revealed white blood cells of 5900, hemoglobin 14, hematocrit 41.7, platelet count 204,000. Chemistry with a sodium of 143, potassium 3.8, chloride 107, CO2 of 29, BUN is 21, creatinine 1, glucose 92, calcium is 8.4. IMPRESSION: 1. Possible transient ischemic attack. 2. Hypertension and hyperlipidemia. 3. Recurrent lower back pain. RECOMMENDATION: Continue with aspirin and treat the underlying generalized osteoarthritis. Follow up with Dr. Abarca after 2 weeks for discharge. GAGE LEVY MD DR: LELO/dennis JOB#: [id number] / [id number]
== END 2018-02-14 10:50 | disposition home or self-care (01) | DRG 69 ==
LOC: ER 22:35 → 1 SOUTH 02-13 00:30
PROVIDERS: ADMIT Internal Medicine; ATTEND Internal Medicine
DX: G45.9 Transient cerebral ischemic attack, unspecified (principal); M48.02 Spinal stenosis, cervical region; E78.00 Pure hypercholesterolemia, unspecified; E78.5 Hyperlipidemia, unspecified; G89.29 Other chronic pain; H35.30 Unspecified macular degeneration; I10 Essential (primary) hypertension; J45.909 Unspecified asthma, uncomplicated; M15.9 Polyosteoarthritis, unspecified; M47.9 Spondylosis, unspecified; M50.30 Other cervical disc degeneration, unspecified cervical region; M54.5 Low back pain; Z79.82 Long term (current) use of aspirin; Z79.899 Other long term (current) drug therapy; Z82.5 Family history of asthma and other chronic lower respiratory diseases; Z98.41 Cataract extraction status, right eye; Z98.42 Cataract extraction status, left eye
CPT/HCPCS: 36415; 70450; 70496; 70498; 71045; 80048; 80061; 80307; 81001; 82140; 82553; 83735; 83880; 84484; 85025; 85610; 85651; 85730; 93005; 93880; G0238; Q9967; 99285-25; G0479

== ENCOUNTER → 2018-05-08 | Outpatient (CLI) | payer MEDICARE ==
[~2018-05-08] MED LIST changes: +CALCIUM PO; +MAGN400C PO; +PITA2TAB2 PO; +VIT1CAPS12 PO
--- NOTE | 2018-05-08 14:43 | CARD ---
MR#: [id number] Date of Study: 05/08/2018 Ordering Physician: RIDGE CARTER, Referring Physician: Sid ROBERTS: ERMELINDA Davies APPROVED REPORT EXAM: Two-dimensional and M-mode echocardiogram with Doppler and color Doppler. Other Information Quality : AverageHR: 69bpm Technically limited study due to body habitus. INDICATION Hypertension/HCVD RISK FACTORS Hypertension 2D DIMENSIONS RVDd3.1 (2.9-3.5cm)Left Atrium(2D)3.0 (1.6-4.0cm) IVSd1.1 (0.7-1.1cm)Aortic Root(2D)2.8 (2.0-3.7cm) LVDd4.8 (3.9-5.9cm)LVOT Diameter2.1 (1.8-2.4cm) PWd1.1 (0.7-1.1cm)LVDs3.0 (2.5-4.0cm) FS (%) 36.5 %SV71.0 ml LVEF(%)66.2 (>50%) Aortic Valve AoV Peak Reggie.142.3cm/sAoV VTI31.6cm AO Peak GR.8.1mmHgLVOT Peak Reggie.82.4cm/s LVOT VTI 19.22cmAO Mean GR.5mmHg ISIAH (VMAX)2.11hf1QMC (VTI)2.15cm2 Mitral Valve MV E Kytavqld10.8cm/sMV E Peak Gr.83mmHg MV DECEL [id number] A Bdvorfum99.6cm/s E/A Ratio0.8 Pulmonary Valve PV Peak Aopakgxk91.1cm/sPV Peak Grad.2mmHg Tricuspid Valve TR P. Lamhpqec030xk/sTR Peak Gr.27mmHg LEFT VENTRICLE The left ventricle is normal size. There is normal left ventricular wall thickness. The left ventricu lar systolic function is normal. The ejection fraction is estimated at 65%. There is normal LV segmen abhishek wall motion. Transmitral Doppler flow pattern is Grade I-abnormal relaxation pattern. RIGHT VENTRICLE The right ventricle is normal size. The right ventricular systolic function is normal. ATRIA The left atrium size is normal. The right atrium size is normal. The interatrial septum is intact wit h no evidence for an atrial septal defect or patent foramen ovale as noted on 2-D or Doppler imaging. AORTIC VALVE The aortic valve is thickened but opens well. Doppler and Color Flow revealed trace aortic regurgitat ion. There is no significant aortic valvular stenosis. There is no aortic valvular vegetation. MITRAL VALVE The mitral valve is thickened but opens well. There is no evidence of mitral valve prolapse. There is no mitral valve stenosis. Doppler and Color-flow revealed mild mitral regurgitation. TRICUSPID VALVE The tricuspid valve leaflets are thickened , but open well. Doppler and Color Flow revealed mild tric uspid regurgitation. There is mild pulmonary hypertension. There is no tricuspid valve prolapse or ve getation. There is no tricuspid valve stenosis. PULMONIC VALVE The pulmonic valve is not well visualized. Doppler and Color Flow revealed mild pulmonic valvular reg urgitation. There is no pulmonic valvular stenosis. GREAT VESSELS The aortic root is normal in size. The IVC was not visualized. PERICARDIAL EFFUSION There is no pleural effusion. There is no evidence of significant pericardial effusion. Critical Notification Critical Value: No <Conclusion> The left ventricular systolic function is normal. The ejection fraction is estimated at 65%. There is normal LV segmental wall motion. Transmitral Doppler flow pattern is Grade I-abnormal relaxation pattern. Mild mitral regurgitation. Mild tricuspid regurgitation. There is no evidence of significant pericardial effusion. Signed by : Ridge Carter, Electronically Approved : 05/08/2018 14:42:41
== END | disposition home or self-care (01) ==
LOC: ECHO 09:49
PROVIDERS: ATTEND Internal Medicine Cardiovascular Disease
DX: I08.8 Other rheumatic multiple valve diseases (principal); I27.20 Pulmonary hypertension, unspecified; I10 Essential (primary) hypertension; E78.5 Hyperlipidemia, unspecified; E78.00 Pure hypercholesterolemia, unspecified; J45.909 Unspecified asthma, uncomplicated; Z82.5 Family history of asthma and other chronic lower respiratory diseases
CPT/HCPCS: 93306

== ENCOUNTER → 2018-06-18 | Outpatient (CLI) | payer MEDICARE ==
[~2018-06-18] MED LIST changes: -AMLO5TAB2 PO; +AMLO5TAB7 PO
--- NOTE | 2018-06-18 14:23 | RAD ---
DATE: 06/18/2018 EXAM: MAMMO SIMA SCREENING BILATERAL HISTORY: Routine screening COMPARISON: 04/21/2017 This study was interpreted with the benefit of Computerized Aided Detection (CAD). Breast Density: FATTY The breast parenchyma is primarily fatty replaced. Breast parenchyma level density A. FINDINGS: 2-D and 3-D tomosynthesis imaging was performed in CC and MLO projections. No new or enlarging breast densities are seen. Benign type calcifications are noted. No suspicious microcalcifications have developed. Benign-appearing lymph nodes are projected over both axillary regions. IMPRESSION: There is no mammographic evidence of malignancy either breast. BI-RADS CATEGORY: 2 BENIGN FINDING(S) RECOMMENDED FOLLOW-UP: 12M 12 MONTH FOLLOW-UP PQRS compliance statement: Patient information was entered into a reminder system with a target due date for the next mammogram. Mammography is a sensitive method for finding small breast cancers, but it does not detect them all and is not a substitute for careful clinical examination. A negative mammogram does not negate a clinically suspicious finding and should not result in delay in biopsying a clinically suspicious abnormality. "Our facility is accredited by the [employer] Mammography Program."
== END | disposition home or self-care (01) ==
LOC: MAMMO 13:25
PROVIDERS: ATTEND Physician Assistant Medical
DX: Z12.31 Encounter for screening mammogram for malignant neoplasm of breast (principal); I10 Essential (primary) hypertension; E78.5 Hyperlipidemia, unspecified; E78.00 Pure hypercholesterolemia, unspecified; J45.909 Unspecified asthma, uncomplicated; Z82.5 Family history of asthma and other chronic lower respiratory diseases
CPT/HCPCS: 77063; 77067

== ENCOUNTER → 2019-07-19 | Outpatient (CLI) | payer MEDICARE ==
[~2019-07-19] MED LIST changes: +ALBU2.5V8 INH; -ALBU8.5H8 INH; +AMLO5TAB10 PO; -AMLO5TAB7 PO
--- NOTE | 2019-07-19 17:12 | RAD ---
EXAM: Right humerus, 2 views. HISTORY: Fall. COMPARISON: None. FINDINGS: 2 views of the right humerus are obtained. There is no fracture, dislocation or subluxation. There is a suspected tiny corticated ossicle overlying the antecubital fossa. IMPRESSION: No acute osseous finding. Electronically signed by: Anaya Castillo MD (07/19/2019 5:09 PM) [id number]
== END | disposition home or self-care (01) ==
LOC: DXRAD 14:52
PROVIDERS: ATTEND Physician Assistant
DX: M79.621 Pain in right upper arm (principal)
CPT/HCPCS: 73060

== ENCOUNTER → 2019-10-14 | Outpatient (CLI) | payer MEDICARE ==
--- NOTE | 2019-10-14 11:17 | CARD ---
MR#: [id number] Date of Study: 10/14/2019 Ordering Physician: RIDGE CARTER, Referring Physician: RIDGE CARTER, Tech: Bibi Anderson RDCS APPROVED REPORT EXAM: Two-dimensional and M-mode echocardiogram with Doppler and color Doppler. Other Information Quality : AverageHR: 76bpm Rhythm : NSR INDICATION Hypertension/HCVD 2D DIMENSIONS RVDd2.7 (2.9-3.5cm)Left Atrium(2D)2.6 (1.6-4.0cm) IVSd1.0 (0.7-1.1cm)Aortic Root(2D)3.0 (2.0-3.7cm) LVDd4.7 (3.9-5.9cm)LVOT Diameter1.9 (1.8-2.4cm) PWd1.0 (0.7-1.1cm)LVDs3.0 (2.5-4.0cm) FS (%) 36.4 %SV66.5 ml LVEF(%)66.2 (>50%) M-Mode DIMENSIONS Left Atrium(MM)3.10 (2.5-4.0cm)Aortic Root2.89 (2.2-3.7cm) Aortic Valve AoV Peak Reggie.148.7cm/sAoV VTI29.7cm AO Peak GR.8.8mmHgLVOT Peak Reggie.88.3cm/s LVOT VTI 13.68cmAO Mean GR.5mmHg ISIAH (VMAX)1.57tr1OQJ (VTI)1.24cm2 Mitral Valve MV E Pziahvbu25.4cm/sMV DECEL [id number] MV A Cpyzxexx26.3cm/sE/A Ratio0.7 Pulmonary Valve PV Peak Tqcznosw35.5cm/sPV Peak Grad.3mmHg Tricuspid Valve TR P. Dwevlmuu301oc/sRAP RQRBJYEQ6puWo TR Peak Gr.20xqToFQUX59ihAs LEFT VENTRICLE The left ventricle is normal size. There is normal left ventricular wall thickness. The left ventricu lar systolic function is normal. The Ejection Fraction is 60-65%. There is normal LV segmental wall m otion. Transmitral Doppler flow pattern is Grade I-abnormal relaxation pattern. RIGHT VENTRICLE The right ventricle is normal size. There is normal right ventricular wall thickness. The right ventr icular systolic function is normal. ATRIA The left atrium size is normal. The right atrium size is normal. The interatrial septum is intact wit h no evidence for an atrial septal defect or patent foramen ovale as noted on 2-D or Doppler imaging. AORTIC VALVE The aortic valve is thickened but opens well. The aortic valve is trileaflet. Doppler and Color Flow revealed trace aortic regurgitation. There is no significant aortic valvular stenosis. There is no ao rtic valvular vegetation. MITRAL VALVE The mitral valve is normal in structure and function. There is no evidence of mitral valve prolapse. There is no mitral valve stenosis. Doppler and Color-flow revealed mild mitral regurgitation. TRICUSPID VALVE The tricuspid valve is normal in structure and function. Doppler and Color Flow revealed trace tricus pid regurgitation. The PA pressure was estimated at 29 mmHg. There is no tricuspid valve prolapse or vegetation. There is no tricuspid valve stenosis. PULMONIC VALVE The pulmonary valve is normal in structure and function. Doppler and Color Flow revealed no pulmonic valvular regurgitation. There is no pulmonic valvular stenosis. GREAT VESSELS The aortic root is normal in size. The ascending aorta is normal in size. The IVC is normal in size a nd collapses >50% with inspiration. PERICARDIAL EFFUSION There is no evidence of significant pericardial effusion. Critical Notification Critical Value: No <Conclusion> The left ventricular systolic function is normal. The Ejection Fraction is 60-65%. There is normal LV segmental wall motion. Transmitral Doppler flow pattern is Grade I-abnormal relaxation pattern. Mild mitral regurgitation. Trace tricuspid regurgitation. The PA pressure was estimated at 29 mmHg. There is no evidence of significant pericardial effusion. Signed by : Ridge Carter, Electronically Approved : 10/14/2019 11:17:19
== END | disposition home or self-care (01) ==
LOC: ECHO 10:41
PROVIDERS: ATTEND Internal Medicine Cardiovascular Disease
DX: I34.0 Nonrheumatic mitral (valve) insufficiency (principal); I10 Essential (primary) hypertension
CPT/HCPCS: 93306

== ENCOUNTER → 2019-10-15 | Outpatient (CLI) | payer MEDICARE ==
[~2019-10-15] MED LIST changes: +REGADENOSON 0.4 MG/5 ML DISP.SYRIN. IV ONE
--- NOTE | 2019-10-15 11:34 | RAD ---
MR#: [id number] Date of Study: 10/15/2019 Ordering Physician: RIDGE HIRSCH Referring Physician: RAEANN ROBERTS Tech: RT Jens Delgadillo) (N) APPROVED REPORT Test Type: Pharmacological Stress Nurse/Tech: RT Elie (Lyubov) (N) Test Indications: hyperlipidemia Cardiac History: none Medications: see EHR Medical History: see EHR Resting Heart Rate: 67 bpm Resting Blood Pressure: 146/60mmHg Pretest Chest Pain: None Nurse/Tech Notes Consent: The procedure was explained to the patient in lay terms. Informed consent was witnessed. Jeramie eout was entered into Patient Engagement Systems. History and Stress Test performed by RT Elie (Lyubov) (N) Pharm. Details Pharmacologic stress testing was performed using 0.4mg per 5ml of regadenoson given intravenously ove r 7-10 seconds. POST EXERCISE Reason for Termination: Infusion complete Max HR: 101 bpm Max Blood Pressure: 163/79mmHg Chest Pain: No. INTERPRETATION Stress EKG Conclusion: Sinus rhythm Nonspecific ST depression Imaging Protocol IMAGE PROTOCOL: Rest Tc-99m/stress Tc-99m 1 day Rest: Stress: Viability: Radiopharm.Tc99m QuyxyhstiJk70p Sestamibi Dose10.5mCi 32.5mCi Duration 15min. 10min. Img Date 10/15/2019 10/15/2019 Inj-Img Lmqa38jef. 60min. Rest Admin Site:IV - Right AntecubitalAdministrator: RT Elie (Lyubov)(N) Stress Admin Site: IV - Right AntecubitalAdministrator: RT Jens Delgadillo)(N) STRESS DATA End Diast. Vol.68.0mlAv. Heart Rate81.0bpm End Syst. Vol.9.0mlCO Index BSA0.0L/min Myocardial Fkjc230.0gEject. Srthknfo51.0% Stress Rates Pk. Fill Rate2.61EDV/secLVtime Pk. Fill 187.74msec Pk. Empty Rate3.59ESV/secLVtime Pk. Mmrae913.43msec 09/20 Pk. Fill1.54EDV/sec Stress Scores Regional WT0.00Summed WT0.00 Regional WM0.00Summed WM0.00 The rest and stress images show normal perfusion, normal contraction and thickening. LV Perf. Quant 17 Seg. SSS1.00 17 Seg. SRS1.00 17 Seg. SDS0.00 Stress Defect Extent (% LAD)0.00Rest Defect Extent (% LAD)9.40Rev. Defect Extent (% LAD)0.00 Stress Defect Extent (% LCX) 0.00Rest Defect Extent (% LCX)7.50Rev. Defect Extent (% LCX)0.00 Stress Defect Extent (% RCA)0.00Rest Defect Extent (% RCA)0.00Rev. Defect Extent (% RCA)0.00 Stress Defect Extent (% NANCY)0.00Rest Defect Extent (% NANCY)4.60Rev. Defect Extent (% NANCY)0.00 Other Information Quality:Good Risk Assessment: Low Risk Conclusion 1. No evidence of EKG changes with stress testing. 2. Normal perfusion at stress/rest. 3. Low risk study. 4. EF > 60%. Signed by : Cain Luna, Electronically Approved : 10/15/2019 11:33:58
== END | disposition home or self-care (01) ==
LOC: NM 07:33
PROVIDERS: ATTEND Internal Medicine Cardiovascular Disease
DX: E78.5 Hyperlipidemia, unspecified (principal); J44.9 Chronic obstructive pulmonary disease, unspecified; Z95.0 Presence of cardiac pacemaker; Z88.8 Allergy status to other drugs, medicaments and biological substances
CPT/HCPCS: 78452; 93017; A9500; J2785

== ENCOUNTER → 2020-11-17 | Outpatient (CLI) | payer MEDICARE ==
[~2020-11-17] MED LIST changes: +AMLO-186 PO; -AMLO5TAB10 PO; -LISI-338 PO; +LISI-517 PO; -REGADENOSON 0.4 MG/5 ML DISP.SYRIN. IV ONE
--- NOTE | 2020-11-17 10:40 | CARD ---
MR#: [id number] Date of Study: 11/17/2020 Ordering Physician: RIDGE CARTER, Referring Physician: RIDGE CARTER, Tech: Alejandra Boyd [facility] APPROVED REPORT EXAM: Two-dimensional and M-mode echocardiogram with Doppler and color Doppler. Other Information Quality : AverageHR: 74bpm INDICATION Hypertension/HCVD RISK FACTORS Hyperlipidemia asthma 2D DIMENSIONS Left Atrium(2D)3.1 (1.6-4.0cm)IVSd1.2 (0.7-1.1cm) Aortic Root(2D)2.9 (2.0-3.7cm)LVDd4.6 (3.9-5.9cm) LVOT Diameter2.0 (1.8-2.4cm)PWd0.9 (0.7-1.1cm) LVDs3.2 (2.5-4.0cm)FS (%) 30.4 % SV57.4 mlLVEF(%)57.8 (>50%) Aortic Valve AoV Peak Reggie.145.4cm/sAoV VTI36.3cm AO Peak GR.8.5mmHgLVOT Peak Reggie.103.9cm/s LVOT VTI 23.42cmAO Mean GR.5mmHg ISIAH (VMAX)2.29xm0SRK (VTI)2.01cm2 Mitral Valve MV E Sorvdzzy25.4cm/sMV DECEL IBHI787sw MV A Eccwxuvq985.0cm/sE/A Ratio0.7 Pulmonary Valve PV Peak Vxetejse21.0cm/sPV Peak Grad.2mmHg Tricuspid Valve TR P. Svacdvyl995ap/sRAP EEWKFAYE3mwDp TR Peak Gr.22cmPmHBTR72dcTv LEFT VENTRICLE The left ventricle is normal size. There is borderline to mild concentric left ventricular hypertroph y. The left ventricular systolic function is normal. The Ejection Fraction is 55%. There is normal LV segmental wall motion. Transmitral Doppler flow pattern is Grade I-abnormal relaxation pattern. RIGHT VENTRICLE The right ventricle is normal size. There is normal right ventricular wall thickness. The right ventr icular systolic function is normal. ATRIA The left atrium size is normal. The right atrium size is normal. The interatrial septum is intact wit h no evidence for an atrial septal defect or patent foramen ovale as noted on 2-D or Doppler imaging. AORTIC VALVE The aortic valve is normal in structure and function. Doppler and Color Flow revealed no significant aortic regurgitation. There is no significant aortic valvular stenosis. Calculated aortic valve area is 2.5 cm2 with maximum pressure gradient of 9 mmHg and mean pressure gradient of 5 mmHg. MITRAL VALVE The mitral valve is normal in structure and function. There is no evidence of mitral valve prolapse. There is no mitral valve stenosis. Doppler and Color-flow revealed trace mitral regurgitation. TRICUSPID VALVE The tricuspid valve is normal in structure and function. Doppler and Color Flow revealed trace tricus pid regurgitation with an estimated PAP of 30 mmHg. There is no tricuspid valve stenosis. PULMONIC VALVE The pulmonic valve is not well visualized. Doppler and Color Flow revealed trace pulmonic valvular re gurgitation. GREAT VESSELS The aortic root is normal in size. The ascending aorta is Mildly dilated measuring 3.6 cm. The IVC is normal in size and collapses >50% with inspiration. PERICARDIAL EFFUSION There is no evidence of significant pericardial effusion. Critical Notification Critical Value: No <Conclusion> The left ventricular systolic function is normal. The Ejection Fraction is 55%. There is normal LV segmental wall motion. Transmitral Doppler flow pattern is Grade I-abnormal relaxation pattern. Trace mitral regurgitation. Trace tricuspid regurgitation with an estimated PAP of 30 mmHg. There is no evidence of significant pericardial effusion. Signed by : Ridge Carter, Electronically Approved : 11/17/2020 10:40:17
== END ==
LOC: ECHO 07:51
PROVIDERS: ATTEND Internal Medicine Cardiovascular Disease
DX: I11.9 Hypertensive heart disease without heart failure (principal)
CPT/HCPCS: 93306

== ENCOUNTER 2021-03-28 01:16 | Emergency (ER) | payer MEDICARE ==
[~2021-03-28] VITALS: Ht 162.6 cm; Wt 78.8 kg
--- NOTE | 2021-03-28 01:39 | PHYS DOC ---
Past History Past Medical History: Hypertension, Vascular Disease Past Surgical History: Other Alcohol Use: None Drug Use: None General Adult HPI: HPI: ".. My right foot is swollen and red...it is the same one that I had cellulitis in..maybe 6 yrs. ago.. My daughter demanded.. I come in an get it checked tonight..." Patient is a 89 year old female who presents with above hx and complaints of leg and foot edema. Patient also complaining of increased redness and warmth in right ankle and foot. This is the same foot that previously had an episode of cellulitis 6 years ago. Patient denies any recent trauma. Patient states her tetanus is up-to-date. No recent travel. No severe ill contacts. Does have significant history of bronchitis, hypertension elevated lipids, osteoarthritis, macular degeneration, peripheral vascular disease and mild gait disorder. Patient has significant surgical history of bilateral breast cataract surgeries. No recent travel. No significant ill contacts. Patient only follows with [facility] for care. Review of Systems: Review of Systems: Constitutional: Denies fever or chills Eyes: Denies change in visual acuity HENT: Denies nasal congestion or sore throat Respiratory: Denies cough or shortness of breath Cardiovascular: Denies chest pain or edema GI: Denies abdominal pain, nausea, vomiting, bloody stools or diarrhea : Denies dysuria Musculoskeletal: Denies back pain or joint pain Integument: Denies rash Neurologic: Denies headache, focal weakness or sensory changes Endocrine: Denies polyuria or polydipsia Lymphatic: Denies swollen glands Psychiatric: Denies depression or anxiety Family History: Family History: Has 3 daughters and 2 sons., 1 son of cancer. Had 3 sisters, and a brother that of pneumonia. Current Medications: Current Meds: See nursing for home meds Allergies: Allergies: Allergies Coded Allergies Type Severity Reaction Last Updated Verified No Known Drug Allergies 01/10/16 No Physical Exam: PE: Constitutional: Mild distress, non-toxic appearance. [] HENT: Normocephalic, atraumatic, bilateral external ears normal, oropharynx moist, no oral exudates, nose normal. [] Eyes: PERRLA, EOMI, conjunctiva normal, no discharge. Glasses Neck: Normal range of motion, no tenderness, supple, no stridor. 17 inches circumference Cardiovascular:Heart rate regular rhythm, no murmur. PMI to left Lungs & Thorax: Bilateral breath sounds equal apex on auscultation [] Abdomen: Bowel sounds normal, soft, no tenderness, no masses, no pulsatile m asses. [] Skin: Warm, dry, no erythema, no rash. [] Back: No tenderness, no CVA tenderness. [] Extremities: No tenderness, no cyanosis, no clubbing, ROM intact, bilateral ankle edema. [] No cording. Right foot and ankle appears to be inflamed and red. Noted temperature difference between right foot elevated as compared to the left foot. Neurologic: Alert and oriented X 3, moves all extremities on request, does have decreased sensory in feet., no new focal deficits noted. [] Psychologic: Affect anxious, judgement normal, mood normal. [] EKG: EKG: My interpretation EKG shows sinus rhythm at 76 bpm. There is prolonged MD interval consistent with first-degree block. Does have findings of intraventricular block with right ventricle hypertrophic changes. There is some anterior septal changes but no findings of acute STEMI of contralateral changes. [] Radiology/Procedures: Radiology/Procedures: [][place] [address] IMAGING REPORT Signed PATIENT: NOHEMI ODELL GACCOUNT: [id number] : 1930 LOCATION: ER AGE: 89 SEX: F EXAM STATUS: DEP ER ORD. PHYSICIAN: FATIMAH TOLEDO MD REASON: dyspnea PROCEDURE: PORTABLE CHEST 1V EXAMINATION: Chest radiograph. VIEWS: Single view COMPARISON: 02/12/2018 INDICATION:89 years, Female, dyspnea. FINDINGS: Stable cardiomediastinal silhouette. No focal consolidation. No pleural effusion or pneumothorax. No acute osseous process. IMPRESSION: No acute cardiopulmonary process. Electronically signed by: Camryn Kaur MD (03/28/2021 6:59 AM) [id number] DICTATED AND SIGNED BY: CAMRYN KAUR MD DATE: 03/28/21 0659 CC: FATIMAH TOLEDO MD; LAUREN CURRY ~MTH0 0 Heart Score: C/O Chest Pain: N/A HEART Score for Chest Pain: HEART Score for Chest Pain Response (Comments) Value History Moderately Suspicious 1 ECG Nonspecific Repolarizatio 1 Age > 65 2 Risk Factors 1 or 2 Risk Factors 1 Troponin < Normal Limit 0 Total 5 Risk Factors: Risk Factors: DM, Current or recent (<one month) smoker, HTN, HLP, family history of CAD, obesity. Risk Scores: Score 0 - 3: 2.5% MACE over next 6 weeks - Discharge Home Score 4 - 6: 20.3% MACE over next 6 weeks - Admit for Clinical Observation Score 7 - 10: 72.7% MACE over next 6 weeks - Early Invasive Strategies Course & Med Decision Making: Course & Med Decision Making Pertinent Labs and Imaging studies reviewed. (See chart for details) Patient soak foot in Epson salt or salt water 4 times a day. Monitor for increased infection or swelling. Take Bactrim DS twice a day. Follow-up primary care. Return if any concerns. Follow-up pending cultures. Return if any concerns. Impression: 1. Right foot cellulitis. 2. History of coronary artery disease 3. History of hypertension [] Dragon Disclaimer: Dragalejandro Disclaimer: This electronic medical record was generated, in whole or in part, using a voice recognition dictation system. Departure Departure: Referrals: LAUREN CURRY (PCP) Scripts Fluconazole (DIFLUCAN) 100 Mg Tablet 100 MG PO DAILY for post antibiotic for 3 Days, #3 TAB Prov: FATIMAH TOLEDO MD 03/28/21 Sulfamethoxazole/Trimethoprim (BACTRIM DS TABLET) 1 Each Tablet 1 TAB PO BID for celluliits for 10 Days, #20 TAB 0 Refills Prov: FATIMAH TOLEDO MD 03/28/21 Anila Disclaimer This chart was dictated in whole or in part using Voice Recognition software in a busy, high-work load, and often noisy Emergency Department environment. It may contain unintended and wholly unrecognized errors or omissions. FATIMAH TOLEDO MD Mar 28, 2021 01:39
[2021-03-28] MEDS ORDERED: DIPH,PERTUSS(ACELL),TET VAC/PF 0.5 ML SYRINGE. VAX IM ONE (02:45)
[2021-03-28] MEDS ORDERED: TETANUS AND DIPHTHERIA TOX/PF 0.5 ML VIAL. VAX IM ONE (02:45)
[2021-03-28] MEDS ORDERED: SMZ/TMP 800/160MG TABLET. PO ONE (02:45)
[2021-03-28 02:51] LABS: BASO % 1 % (0-3); EOS # 0.2 x10^3/uL (0.0-0.7); EOS % 3 % (0-3); HEMATOCRIT 37.6 % (36.0-47.0); HEMOGLOBIN 12.4 g/dL (12.0-15.5); LYMPH # 2.1 x10^3/uL (1.0-4.8); LYMPH % 28 % (24-48); MEAN CORPUSCULAR HEMOGLOBIN 32 pg (25-35); MEAN CORPUSCULAR HGB CONC 33 g/dL (31-37); MEAN CORPUSCULAR VOLUME 96 fL (79-100); MONO # 0.9 x10^3/uL (0.0-1.1); MONO % 12 % (0-9); NEUT # 4.3 x10^3uL (1.8-7.7); NEUT % 57 % (31-73); PLATELET COUNT 198 x10^3/uL (140-400); RED BLOOD COUNT 3.92 x10^6/uL (3.50-5.40); RED CELL DISTRIBUTION WIDTH 13.6 % (11.5-14.5); WHITE BLOOD COUNT 7.5 x10^3/uL (4.0-11.0)
[2021-03-28 03:09] LABS: ALBUMIN 4.1 g/dL (3.4-5.0); ALK PHOS 61 U/L (46-116); ALT (SGPT) 21 U/L (14-59); AST (SGOT) 24 U/L (15-37); MAGNESIUM 2.2 mg/dL (1.8-2.4); TOTAL BILIRUBIN 0.2 mg/dL (0.2-1.0); TOTAL PROTEIN 6.8 g/dL (6.4-8.2)
[2021-03-28 03:19] LABS: DIRECT BILIRUBIN < 0.1 mg/dL (0.0-0.2)
[2021-03-28 03:23] LABS: HEMOGLOBIN ISTAT 7.8 gm/dL; POTASSIUM ISTAT 3.8 mmol/L (3.5-5.0)
[2021-03-28] MEDS ORDERED: IV NORMAL SALINE 50ML 50 ML ONE (03:26)
[2021-03-28] MEDS ORDERED: cefTRIAXone SODIUM 1 GM VIAL ONE (03:27)
[2021-03-28] MEDS ORDERED: LOSA50TA86 PO (03:31)
[2021-03-28] MEDS ORDERED: CARB100T4 PO (03:31)
[2021-03-28] MEDS ORDERED: AMLO-186 PO (03:31)
[2021-03-28] MEDS ORDERED: SULF1TAB24 PO (03:39)
[2021-03-28] MEDS ORDERED: FLUC100T7 PO (03:39)
--- NOTE | 2021-03-28 03:40 | EKG ---
[address] [address] Test Date: 2021-03-28 Test Time: 02:07:01 Pat Name: NOHEMI ODELL Department: Room: Gender: F [employer]: : 1930 Requested By: FATIMAH TOLEDO Order Number: [id number] Reading MD: Measurements Intervals [place] Rate: 76 P: 82 MI: 278 QRS: -25 QRSD: 142 T: 28 QT: 432 QTc: 491 Interpretive Statements SINUS RHYTHM PROLONGED MI INTERVAL LEFTWARD AXIS NON SPECIFIC INTRAVENTRICULAR BLOCK RVH WITH REPOLARIZATION ABNORMALITY QRS(T) CONTOUR ABNORMALITY CONSIDER ANTEROSEPTAL MYOCARDIAL DAMAGE ABNORMAL ECG RI6.02 No previous ECG available for comparison
[2021-03-28 03:45] VITALS: BP 157/93
[2021-03-28 04:42] LABS: BACTERIA,URINE 0 /HPF (0-FEW); BILIRUBIN,URINE NEG (NEG); CLARITY,URINE CLEAR; COLOR,URINE YELLOW; GLUCOSE,URINE NEG (NEG); NITRITE,URINE NEG (NEG); SQUAMOUS EPITHELIAL CELL,UR FEW /LPF; UROBILINOGEN,URINE 0.2 mg/dL (0.2 mg/dL); WBC,URINE 0 /HPF (0-4)
--- NOTE | 2021-03-28 07:02 | RAD ---
EXAMINATION: Chest radiograph. VIEWS: Single view COMPARISON: 02/12/2018 INDICATION:89 years, Female, dyspnea. FINDINGS: Stable cardiomediastinal silhouette. No focal consolidation. No pleural effusion or pneumothorax. No acute osseous process. IMPRESSION: No acute cardiopulmonary process. Electronically signed by: Kiana Kaur MD (03/28/2021 6:59 AM) [id number]
== END 2021-03-28 03:54 | disposition home or self-care (01) ==
LOC: ER 01:16
DX: L03.115 Cellulitis of right lower limb (principal); I10 Essential (primary) hypertension
CPT/HCPCS: 36415; 71045; 80047; 80076; 81001; 82550; 83605; 83735; 83880; 84443; 84484; 85025; 85651; 87040; 90471; 90715; 93005; 96365; 99285; J0696

== ENCOUNTER 2021-03-31 22:55 | Emergency (ER) | payer MEDICARE ==
[~2021-03-31] VITALS: Ht 162.6 cm; Wt 78.8 kg
[~2021-03-31 22:55] MED LIST changes: +CARB100T4 PO; +FLUC100T7 PO; +LOSA50TA86 PO; +SULF1TAB24 PO
[2021-03-31 23:08] VITALS: BP 179/95
--- NOTE | 2021-03-31 23:51 | PHYS DOC ---
Past History Past Medical History: Hypertension, Vascular Disease Additional Past Medical Histor: NERVE PAIN IN THE LEFT SIDE OF HER FACE BEING FOLLOWED BY [facility]. Past Surgical History: Other Additional Past Surgical Histo: PT STATED NOTHING IMPORTANT Alcohol Use: None Drug Use: None General Adult EDM: Chief Complaint: SKIN RASH/ABSCESS HPI: HPI: ".. They wanted me to get this bump checked out on the Lt side my baptist..." Patient is a 89 year old female who presents with concerns about new bump on Lt side of face. Patient does have a soft tissue area approximately 1 x 1 cm left baptist area. It is nontender. No break in skin. Patient has no findings of rash anywhere else on body except the cellulitis on right foot and ankle.. Patient has recently started a course of Bactrim for right foot and ankle cellulitis. Patient has not been allergic to Bactrim previously. Current lesion on left baptist area is not typical of a Bactrim allergy presentation. Patient to take Benadryl 2550 mg 4 times a day for itching. Follow-up primary care. Return if any exacerbation of skin lesions. Follow-up primary care. Review of Systems: Review of Systems: Constitutional: Denies fever or chills Eyes: Denies change in visual acuity HENT: Denies nasal congestion or sore throat. Complains of a new lesion on left baptist area Respiratory: Denies cough or shortness of breath Cardiovascular: Denies chest pain or edema GI: Denies abdominal pain, nausea, vomiting, bloody stools or diarrhea : Denies dysuria Musculoskeletal: Denies back pain or joint pain Integument: Denies rash Neurologic: Denies headache, focal weakness or sensory changes Endocrine: Denies polyuria or polydipsia Lymphatic: Denies swollen glands Psychiatric: Denies depression or anxiety Family History: Family History: Noncontributory to presentation Current Medications: Current Meds: See nursing for home meds Allergies: Allergies: Allergies Coded Allergies Type Severity Reaction Last Updated Verified No Known Drug Allergies 03/28/21 No Physical Exam: PE: Constitutional: no acute distress, non-toxic appearance. [] HENT: Normocephalic, atraumatic, bilateral external ears normal, oropharynx moist, no oral exudates, nose normal. [Complains of a soft tissue bump left temporal 1 x 1 cm Eyes: PERRLA, EOMI, conjunctiva normal, no discharge. [] Neck: Normal range of motion, no tenderness, supple, no stridor. [] Cardiovascular:Heart rate regular rhythm, no murmur [] Lungs & Thorax: Bilateral breath sounds "apex auscultation [] Abdomen: Bowel sounds normal, soft, no tenderness, no masses, no pulsatile masses. [] Skin: Warm, dry, no erythema, no rash. [] Back: No tenderness, no CVA tenderness. [] Extremities: No tenderness, no cyanosis, no clubbing, ROM intact, right foot and ankle cellulitis and edema. [] Neurologic: Alert and oriented X 3, normal motor function, normal sensory fun ction, no focal deficits noted. [] Psychologic: Affect anxious, judgement normal, mood normal. [] Current Patient Data: Vital Signs: Vital Signs Date Time Temp Pulse Resp B/P (MAP) Pulse Ox O2 Delivery O2 Flow Rate FiO2 03/31/21 23:08 97.7 85 18 179/95 97 Room Air EKG: EKG: [] Radiology/Procedures: Radiology/Procedures: [] Heart Score: C/O Chest Pain: N/A Risk Factors: Risk Factors: DM, Current or recent (<one month) smoker, HTN, HLP, family hist ory of CAD, obesity. Risk Scores: Score 0 - 3: 2.5% MACE over next 6 weeks - Discharge Home Score 4 - 6: 20.3% MACE over next 6 weeks - Admit for Clinical Observation Score 7 - 10: 72.7% MACE over next 6 weeks - Early Invasive Strategies Course & Med Decision Making: Course & Med Decision Making Pertinent Labs and Imaging studies reviewed. (See chart for details) Patient to monitor lesion on left baptist area. Continue the Bactrim for now. May take Benadryl 25 mg up to 4 times a day for itching. Follow-up with neurology for her trigeminal neuralgia. Impression: 1. 1 x 1 cm soft tissue prominence left baptist area ( Not typical of Allergic Rx to Bactrim.) 2. Rt foot and ankle cellulitis [] Anila Disclaimer: Anila Disclaimer: This electronic medical record was generated, in whole or in part, using a voice recognition dictation system. Departure Departure: Referrals: DAISY MUSA (PCP) Anila Disclaimer This chart was dictated in whole or in part using Voice Recognition software in a busy, high-work load, and often noisy Emergency Department environment. It may contain unintended and wholly unrecognized errors or omissions. FATIMAH TOLEDO MD Mar 31, 2021 23:51
[2021-04-01] MEDS ORDERED: diphenhydrAMINE HCL 25 MG CAPSULE PO ONE (00:30)
== END 2021-04-01 00:23 | disposition home or self-care (01) ==
LOC: ER 22:55
DX: L03.115 Cellulitis of right lower limb (principal); I10 Essential (primary) hypertension
CPT/HCPCS: 99282; Q0163

== ENCOUNTER → 2021-11-30 | Outpatient (CLI) | payer MEDICARE ==
[~2021-11-30] MED LIST changes: -DOXY100C2 PO; +DOXY100C3 PO; -LISI-517 PO; +LISI5TAB15 PO
--- NOTE | 2021-12-01 08:07 | CARD ---
MR#: [id number] Date of Study: 11/30/2021 Ordering Physician: RIDGE CARTER, Referring Physician: RIDGE CARTER Tech: Augie Salazar [facility] APPROVED REPORT EXAM: Two-dimensional and M-mode echocardiogram with Doppler and color Doppler. Other Information Quality : GoodHR: 70bpm Rhythm : NSR INDICATION Hypertension/HCVD RISK FACTORS Hypertension Hyperlipidemia 2D DIMENSIONS Left Atrium(2D)3.9 (1.6-4.0cm)IVSd1.3 (0.7-1.1cm) Aortic Root(2D)2.9 (2.0-3.7cm)LVDd3.8 (3.9-5.9cm) LVOT Diameter2.1 (1.8-2.4cm)PWd1.3 (0.7-1.1cm) LA Gcvupd90 (18-58mL)LVDs2.1 (2.5-4.0cm) FS (%) 44.5 %SV48.4 ml LVEF(%)76.5 (>50%) Aortic Valve AoV Peak Reggie.146.9cm/sAoV VTI30.3cm AO Peak GR.8.6mmHgLVOT Peak Reggie.85.9cm/s LVOT VTI 18.58cmAO Mean GR.4mmHg ISIAH (VMAX)2.13yc2XPX (VTI)2.10cm2 Mitral Valve MV E Upnknzlj53.0cm/sMV E Peak Gr.4mmHg MV DECEL [id number] A Hrwynwhr94.9cm/s MV E Mean Gr.1mmHgE/A Ratio0.9 Pulmonary Valve PV Peak Ulpcbfms20.5cm/sPV Peak Grad.3mmHg Tricuspid Valve TR P. Rwjwqoas614bd/sTR Peak Gr.30mmHg Pulmonary Vein S1 Ksogllfv90.1cm/sD2 Fxujdtof94.2cm/s LEFT VENTRICLE The left ventricle is normal size. There is mild concentric left ventricular hypertrophy. The left ve ntricular systolic function is normal. The ejection fraction is 55-60%. There is normal LV segmental wall motion. Transmitral Doppler flow pattern is Grade I-abnormal relaxation pattern. No left ventric le thrombus noted on this study. There is no ventricular septal defect visualized. There is no left v entricular aneurysm. There is no mass noted in the left ventricle. RIGHT VENTRICLE The right ventricle is normal size. There is normal right ventricular wall thickness. The right ventr icular systolic function is normal. ATRIA The left atrium is mildly dilated. The right atrium size is normal. The interatrial septum is intact with no evidence for an atrial septal defect or patent foramen ovale as noted on 2-D or Doppler imagi ng. AORTIC VALVE The aortic valve is normal in structure and function. The aortic valve is tri-cuspid. Doppler and Col or Flow revealed no significant aortic regurgitation. There is no significant aortic valvular stenosi s. There is no aortic valvular vegetation. MITRAL VALVE The mitral valve is thickened but opens well. There is no evidence of mitral valve prolapse. There is no mitral valve stenosis. Doppler and Color-flow revealed mild mitral regurgitation. TRICUSPID VALVE The tricuspid valve is normal in structure and function. Doppler and Color Flow revealed trace to mil d tricuspid regurgitation. The PA pressure was estimated at 35 mmHg. There is no tricuspid valve prol apse or vegetation. There is no tricuspid valve stenosis. PULMONIC VALVE The pulmonary valve is normal in structure and function. Doppler and Color Flow revealed no pulmonic valvular regurgitation. There is no pulmonic valvular stenosis. GREAT VESSELS The aortic root is normal in size. The ascending aorta is normal in size. The pulmonary artery is nor mal. The IVC is normal in size and collapses >50% with inspiration. PERICARDIAL EFFUSION There is no pleural effusion. There is no evidence of significant pericardial effusion. Critical Notification Critical Value: No <Conclusion> The left ventricular systolic function is normal. The ejection fraction is 55-60%. There is normal LV segmental wall motion. Transmitral Doppler flow pattern is Grade I-abnormal relaxation pattern. Mild mitral regurgitation. Trace to mild tricuspid regurgitation. The PA pressure was estimated at 35 mmHg. There is no evidence of significant pericardial effusion. Signed by : Ridge Carter, Electronically Approved : 12/01/2021 08:06:55
== END ==
LOC: ECHO 12:50
PROVIDERS: ATTEND Internal Medicine Cardiovascular Disease
DX: I08.1 Rheumatic disorders of both mitral and tricuspid valves (principal); I10 Essential (primary) hypertension
CPT/HCPCS: 93306